=== PATIENT | male | born 1945 | race Caucasian/White ===

== ENCOUNTER 2022-11-24 23:01 | Emergency (ER) | payer MEDICARE, SELFPAY ==
[2022-11-24 23:09] VITALS: BP 148/73; PULSE 98; RESP 18; TEMP 37.3; O2SAT 98; BMI 29.2
[2022-11-24 23:24] LABS: Glucometer 144 mg/dL (74-106)
--- NOTE | 2022-11-25 00:01 | ED_ITS ---
HPI - General Adult General Chief complaint: Weakness Stated complaint: hyperglycemia Time Seen by Provider: 11/24/22 23:59 Source: patient Mode of arrival: walk-in Limitations: no limitations History of Present Illness HPI narrative: 77-year-old male with a history of diabetes presents for evaluation of 3 days of nasal congestion with runny nose, increased fatigue and nausea. The patient states that his nose is running down the back of his throat and into his stomach causing him to be nauseated. It is mostly clear but sometimes yellowish when he blows his nose. He does not have a history of seasonal ALLERGIES.He has not vomited. He denies any chest pain or shortness of breath. He does have an occasional cough but he feels that is related to this stuff running down the back of his throat. He is concerned that he may have a sinus infection. He has not had a fever. He does have fullness in his ears. He has no facial pain. He has no dizziness or syncope. He was recently visiting his son in [place] and h is symptoms started after returning from [place]. He has had a cold with vaccinations. He is mostly concerned because the nausea that he is experiencing from the drainage from his nose is keeping him from following his routine of eating and taking his diabetic medications. Earlier this evening he woke up covered with sweat and his sugar was 44. His significant other gave him jelly and on arrival his glucose was 144. Onset (ago): day(s) (3) Related Data Home Medications Medication Instructions Recorded Confirmed atorvastatin 40 mg tablet 40 mg PO DAILY 11/24/22 11/24/22 empagliflozin 10 mg tablet 10 mg PO DAILY 11/24/22 11/24/22 (Jardiance) insulin degludec 100 unit/mL (3 40 unit subcut DAILY 11/24/22 11/24/22 mL) subcutaneous pen (Tresiba FlexTouch U-100 insulin) lisinopril 10 mg tablet 10 mg PO DAILY 11/24/22 11/24/22 Allergies Allergy/AdvReac Type Severity Reaction Status Date / Time No Known Drug Allergies Allergy Verified 11/24/22 23:13 Review of Systems ROS Status of ROS 10 or more systems reviewed and unremarkable except as noted in history and below Ears, nose, mouth, and throat Reports: nasal discharge and nasal congestion Gastrointestinal Reports: nausea PFSH PFSH Social History Smoking status: Never smoker Exam Constitutional Vital Signs - 24 hr 11/24/22 23:09 11/25/22 00:58 11/25/22 03:03 Temperature 99.1 F Pulse Rate [Monitor] 98 H 96 H 93 H Respiratory Rate 18 16 22 Blood Pressure [Left Arm] 148/73 H 111/61 115/65 Pulse Oximetry 98 95 97 Oxygen Delivery Method Room Air Room Air Room Air 11/25/22 03:04 Temperature Pulse Rate [Monitor] Respiratory Rate 22 Blood Pressure [Left Arm] Pulse Oximetry 97 Oxygen Delivery Method Room Air Documenting provider has reviewed patient's vital signs: yes (Normal vital signs) Common normals: no apparent distress (Uncomfortable, nontoxic) and average body habitus General appearance: comfortable and well kempt HENMT Common normals: normocephalic, head/scalp atraumatic, TMs normal bilaterally, nasal mucous membranes and turbinates normal (clear rhinorhea, boggy nasal turbinates) and oropharynx normal Head and scalp: normal to inspection and normocephalic Face and sinus: normal facial exam, sinuses nontender and face symmetric Nose: external nose normal, nares normal and nasal mucous membranes and turbinates normal (boggy) External ear: external ears normal Tympanic membrane: TMs normal bilaterally Mouth: oral and palatal mucosa normal Eye Common normals: PERRL, EOMs intact bilaterally and conjunctivae normal Neck & C-Spine Common normals: full ROM, no lymphadenopathy, supple, no meningeal signs and no JVD General: normal visual inspection and trachea midline Respiratory Common normals: normal respiratory effort, no retractions, no use of accessory muscles and clear to auscultation bilaterally Effort & inspection: able to speak in complete sentences and symmetric chest movement Auscultation: clear to auscultation bilaterally Cardio Common normals: no JVD, regular rate (irregular rate and rhythm), regular rhythm, S1 normal heart sound, S2 normal heart sound, no gallops, no clicks, no murmurs, no rub and peripheral pulses 2+ throughout Rhythm: abnormal rhythm irregularly irregular GI Common normals: Normal to inspection, nondistended, normoactive bowel sounds present and soft to palpation Palpation: soft Extremity Common normals: normal to inspection and full ROM Neuro Common normals: oriented x3, CN's II-XII intact bilaterally, moves all extremities, no focal motor deficits and no sensory deficits noted Psych Common normals: mental status grossly normal Course Reevaluation(s) Reevaluation #1: pt feeling better after po zofran Reevaluation #2: Pt re-evaluated and is now feeling terrible with nausea, dyspepsia. He states he hasn't slept for 3 nights due to these symptoms. He did recently start taking jardiance for his diabetes. Vital Signs Vital signs: Vital Signs Temperature 99.1 F 11/24/22 23:09 Pulse Rate 98 H 11/24/22 23:09 Respiratory Rate 18 11/24/22 23:09 Blood Pressure 148/73 H 11/24/22 23:09 Pulse Oximetry 98 11/24/22 23:09 Oxygen Delivery Method Room Air 11/24/22 23:09 Temperature 99.1 F 11/24/22 23:09 Pulse Rate 93 H 11/25/22 03:03 Respiratory Rate 22 11/25/22 03:04 Blood Pressure 115/65 11/25/22 03:03 Pulse Oximetry 97 11/25/22 03:04 Oxygen Delivery Method Room Air 11/25/22 03:04 Medical Decision Making MDM Narrative Medical decision making narrative: This 77-year-old male presents for evaluation of a runny nose and severe nausea. He feels that the drainage from his nose is going into his stomach and making him nauseated. He was treated with Zofran initially with clinical improvement but then had recurrence of his symptoms. He also states that he hasn't been able to sleep for the past 3 nights due to nausea and inability to get comfortable due to the nausea. He is not vomiting. He denies any chest pain or shortness of breath. His HEENT exam is basically benign and he has a normal respiratory panel. After his initial Zofran he was reevaluated and states his symptoms had returned and he was feeling sweaty. He had had an episode of hypo-glycemia earlier in the night. The patient states that he has not been on his normal routine of eating and monitoring his glucose because of the nausea. Ultimately he revealed to me that he has recently started taking Jardiance, which was prescribed by his family physician. He started taking it about 2 weeks ago but has not taken it in the past 4 days. I suspected that some of his symptoms may be related to that however we did a cardiac workup considering he was having nausea and diaphoresis. He did explain that a year or so ago when having preop w [facility] for dental work he was told that he had an irregular heart rate. He had never been told that he had atrial fibrillation. He does take a daily baby aspirin. An EKG was performed that shows atrial fibrillation At 89 bpm with no acute changes. An IV was placed and he was given a liter of fluid and IV Zofran with clinical improvement. We had a lengthy discussion about the side effects of this new medication that he is taking and I was concerned that he may have ketoacidosis. Routine labs were ordered and show a mild elevation in his white count at 12.8 with a normal hemoglobin. There were negative for acetone. He had a normal bicarbonate. He does have an elevated creatinine at 2.12. His troponin is normal. He states that he does not think he has ever had any kidney problems in the past. His elevated creatinine is possibly related to the fact that he has not been eating or drinking for the past 3 days due to the abdominal discomfort he is experiencing. I did note that he is also on lisinopril. After the IV fluids and Zofran he was clinically improved and did not wish to discuss being admitted to the hospital. He states he will call per medical cardiology tomorrow and get a follow-up appointment. He also will follow up as soon as possible with his primary care physician. I encouraged him to withhold taking this medication until he can see his primary care physician in follow-up. The patient appears to be well otherwise and we discussed the fact that his atrial fibrillation is rate controlled and may not be new. He does not appear to be having any side effects from the atrial fibrillation. He does not have any chest pain shortness of breath dizziness or palpitations. He'll be discharged home with a prescription for the Zofran and a copy of his EKG and lab work. He was encouraged return to emergency department for ongoing or worsening symptoms or any concerns. Medical Records Medical records narrative: We do not have any prior blood work in our system Lab Data Lab results reviewed: Yes I reviewed the patient's lab results Lab results narrative: Patient has a low sodium at 129 and elevated creatinine at 2.12. Troponin is normal. CBC and differential is normal. Respiratory panel is normal. Labs: Lab Results 11/24/22 11/25/22 11/25/22 Range/Units 23:22 00:05 01:38 WBC (4.0-11.0) 10^3/uL RBC (4.70-6.10) 10^6/uL Hgb (14.0-18.0) g/dL Hct (42.0-54.0) % MCV (80.0-94.0) fL MCH (25.9-34.0) pg MCHC (29.9-35.2) g/dL RDW (11.0-15.0) % Plt Count (150-450) 10^3/uL MPV (9.5-13.5) fL Seg Neuts % (Manual) Band Neutrophils % (0-5) % Lymphocytes % (Manual) (20.5-60.0) % Atypical Lymphs % (Man) % Monocytes % (Manual) (1.7-12.0) % Eosinophils % (Manual) (0.9-7.0) % Basophils % (Manual) (0.2-2.0) % Neutrophils # (Manual) (1.4-6.5) 10^3/uL Band Neutrophils # (0.0-0.3) 10^3/uL Lymphocytes # (Manual) (1.20-3.80) 10^3/uL Monocytes # (Manual) (0.30-0.80) 10^3/uL Eosinophils # (Manual) (0.00-0.70) 10^3/uL Basophils # (Manual) (0.00-0.10) 10^3/uL Sodium (136-145) mmol/L Potassium (3.5-5.1) mmol/L Chloride (98-107) mmol/L Carbon Dioxide (21.0-32.0) mmol/L Anion Gap BUN (7.0-18.0) mg/dL Creatinine (0.70-1.30) mg/dL Est GFR ( Amer) (>=60) Est GFR (Non-Af Amer) (>=60) BUN/Creatinine Ratio Glucose (74-106) mg/dL Lactate (0.4-2.0) mmol/L Calcium (8.5-10.1) mg/dL Troponin I High Sens (4.0-76.1) pg/mL Acetone, Qual (NEGATIVE) Adenovirus (PCR) Not detected (NOT DETECTE) C. pneumoniae DNA (PCR) Not detected (NOT DETECTE) Coronavirus Type OC43 Not detected (NOT DETECTE) Coronavirus Type HKU1 Not detected (NOT DETECTE) Coronavirus Type 229E Not detected (NOT DETECTE) Coronavirus Type NL63 Not detected (NOT DETECTE) Human Metapneumovir PCR Not detected (NOT DETECTE) M. pneumoniae (PCR) Not detected (NOT DETECTE) Parainfluenza PCR Not detected (NOT DETECTE) Parainfluenza 2 (PCR) Not detected (NOT DETECTE) Parainfluenza 3 (PCR) Not detected (NOT DETECTE) Parainfluenza 4 (PCR) Not detected (NOT DETECTE) RSV (RT-PCR) Not detected (NOT DETECTE) Entero/Rhino (PCR) Not detected (NOT DETECTE) SARS-CoV-2 (PCR) Not detected (NOT DETECTE) Bordetella pertussis (PCR) Not detected (NOT DETECTE) B parapertussis DNA PCR Not detected (NOT DETECTE) Influenza Type A (PCR) Not detected (NOT DETECTE) Influenza Type B (PCR) Not detected (NOT DETECTE) POC Glucose 144 H 115 H (74-106) mg/dL 11/25/22 Range/Units 01:50 WBC 12.8 H (4.0-11.0) 10^3/uL RBC 3.95 L (4.70-6.10) 10^6/uL Hgb 11.9 L (14.0-18.0) g/dL Hct 34.3 L (42.0-54.0) % MCV 86.8 (80.0-94.0) fL MCH 30.1 (25.9-34.0) pg MCHC 34.7 (29.9-35.2) g/dL RDW 12.8 (11.0-15.0) % Plt Count 147 L (150-450) 10^3/uL MPV 12.1 (9.5-13.5) fL Seg Neuts % (Manual) 44.0 Band Neutrophils % 3.0 (0-5) % Lymphocytes % (Manual) 8.0 L (20.5-60.0) % Atypical Lymphs % (Man) 35.0 % Monocytes % (Manual) 10.0 (1.7-12.0) % Eosinophils % (Manual) 0.0 L (0.9-7.0) % Basophils % (Manual) 0.0 L (0.2-2.0) % Neutrophils # (Manual) 5.63 (1.4-6.5) 10^3/uL Band Neutrophils # 0.4 H (0.0-0.3) 10^3/uL Lymphocytes # (Manual) 1.02 L (1.20-3.80) 10^3/uL Monocytes # (Manual) 1.28 H (0.30-0.80) 10^3/uL Eosinophils # (Manual) 0.00 (0.00-0.70) 10^3/uL Basophils # (Manual) 0.00 (0.00-0.10) 10^3/uL Sodium 129 L (136-145) mmol/L Potassium 4.0 (3.5-5.1) mmol/L Chloride 98 (98-107) mmol/L Carbon Dioxide 22.1 (21.0-32.0) mmol/L Anion Gap 12.9 BUN 34.0 H (7.0-18.0) mg/dL Creatinine 2.12 H (0.70-1.30) mg/dL Est GFR ( Amer) 37 L (>=60) Est GFR (Non-Af Amer) 31 L (>=60) BUN/Creatinine Ratio 16.0 Glucose 123 H (74-106) mg/dL Lactate 1.6 (0.4-2.0) mmol/L Calcium 8.3 L (8.5-10.1) mg/dL Troponin I High Sens 34.3 (4.0-76.1) pg/mL Acetone, Qual Negative (NEGATIVE) Adenovirus (PCR) (NOT DETECTE) C. pneumoniae DNA (PCR) (NOT DETECTE) Coronavirus Type OC43 (NOT DETECTE) Coronavirus Type HKU1 (NOT DETECTE) Coronavirus Type 229E (NOT DETECTE) Coronavirus Type NL63 (NOT DETECTE) Human Metapneumovir PCR (NOT DETECTE) M. pneumoniae (PCR) (NOT DETECTE) Parainfluenza PCR (NOT DETECTE) Parainfluenza 2 (PCR) (NOT DETECTE) Parainfluenza 3 (PCR) (NOT DETECTE) Parainfluenza 4 (PCR) (NOT DETECTE) RSV (RT-PCR) (NOT DETECTE) Entero/Rhino (PCR) (NOT DETECTE) SARS-CoV-2 (PCR) (NOT DETECTE) Bordetella pertussis (PCR) (NOT DETECTE) B parapertussis DNA PCR (NOT DETECTE) Influenza Type A (PCR) (NOT DETECTE) Influenza Type B (PCR) (NOT DETECTE) POC Glucose (74-106) mg/dL ECG Data Attestation: I personally reviewed and interpreted this ECG as follows: (Atrial fibrillation 89 beats for minute, normal axis, nonspecific ST changes, no acute ST segment elevation or T-wave inversion) Discharge Plan Discharge Chief Complaint: Weakness Clinical Impression: Medication side effect, Nausea, Dehydration, Atrial fibrillation Patient Disposition: Home, Self-Care Time of Disposition Decision: 03:15 Prescriptions / Home Meds: No Action atorvastatin 40 mg tablet 40 mg PO DAILY Jardiance 10 mg tablet 10 mg PO DAILY insulin degludec [Tresiba FlexTouch U-100] 100 unit/mL (3 mL) insulin pen 40 unit SUBCUT DAILY lisinopril 10 mg tablet 10 mg PO DAILY Instructions: A-fib (Atrial Fibrillation) (ED), Dehydration (ED), Acute Nausea and Vomiting (ED) Stand Alone Forms: Portal Instructions Referrals: FAMILIA ARTIS [Primary Care Provider] - As soon as possible
[2022-11-25] MEDS: ONDANSETRON 4 MG RAPDIS TABLET SL ×2 (00:29→04:40)
[2022-11-25 00:58] VITALS: BP 111/61; PULSE 96; RESP 16; O2SAT 95
--- NOTE | 2022-11-25 01:02 | XR_ITS ---
The [address] [address] Patient Name: DON GANN MRN: [id number] date: 1945 Sex: M Assigned Patient Location: ER Current Patient Location: ER Accession/Order Number: [id number] Exam Date: 11/25/2022 01:04 Report Date: 11/25/2022 01:30 At the request of: KOJO MARKER Procedure: XR chest 2V EXAM: XR chest 2V HISTORY: cough COMPARISON: None. TECHNIQUE: 2 views of the chest were obtained. FINDINGS: The cardiac silhouette is normal in size. Aortic atherosclerotic disease is seen. Calcified granulomas are seen in the left lung. There is no significant pneumothorax or pleural effusion. Surgical clips are seen within the right aspect of the neck. No acute osseous abnormality is seen. IMPRESSION: 1. No acute cardiopulmonary abnormality. Electronically authenticated by: Sharri ARAUJO Date: 11/25/2022 01:30
[2022-11-25 01:08] LABS: Adenovirus NOT DETECTED (NOT DETECTE); Bordetella parapertussis NOT DETECTED (NOT DETECTE); Coronavirus 229E NOT DETECTED (NOT DETECTE); Coronavirus HKU1 NOT DETECTED (NOT DETECTE); Coronavirus NL63 NOT DETECTED (NOT DETECTE); Coronavirus OC43 NOT DETECTED (NOT DETECTE); Human Metapneumovirus NOT DETECTED (NOT DETECTE); Human Rhinovirus/Enterovirus NOT DETECTED (NOT DETECTE); Influenza A NOT DETECTED (NOT DETECTE); Influenza B NOT DETECTED (NOT DETECTE); Mycoplasma pneumoniae NOT DETECTED (NOT DETECTE); Parainfluenza Virus 1 NOT DETECTED (NOT DETECTE); Parainfluenza Virus 2 NOT DETECTED (NOT DETECTE); Parainfluenza Virus 3 NOT DETECTED (NOT DETECTE); Parainfluenza Virus 4 NOT DETECTED (NOT DETECTE); Respiratory Syncytial Virus NOT DETECTED (NOT DETECTE); SARS-CoV-2 NOT DETECTED (NOT DETECTE)
--- NOTE | 2022-11-25 01:35 | ECG_ITS ---
The [facility] Test Date: 2022-11-25 Pat Name: DON GANN Department: Room: - Gender: Male Human Services Care Specialist: : 1945 Requested By: [id number] Order Number: [id number] Reading MD: ELBA CALVO Measurements Intervals [place] Rate: 89 P: -[id number] [place]: -[id number] QRS: 40 QRSD: 98 T: 33 QT: 360 QTc: 406 Interpretive Statements 1210 Atrial fibrillation 9140 abnormal rhythm ECG No previous ECG available for comparison Electronically Signed On 11-25-2022 7:03:23 EDT by ELBA CALVO
[2022-11-25 01:51] LABS: Glucometer 115 mg/dL (74-106)
[2022-11-25 02:01] VITALS: PULSE 89
[2022-11-25 02:06] LABS: Hematocrit 34.3 % (42.0-54.0); Hemoglobin 11.9 g/dL (14.0-18.0); Mean Corpuscular HGB Conc 34.7 g/dL (29.9-35.2); Mean Corpuscular Hemoglobin 30.1 pg (25.9-34.0); Mean Corpuscular Volume 86.8 fL (80.0-94.0); Mean Platelet Volume 12.1 fL (9.5-13.5); Platelet Count 147 10^3/uL (150-450); Red Blood Count 3.95 10^6/uL (4.70-6.10); Red Cell Distribution Width 12.8 % (11.0-15.0); White Blood Count 12.8 10^3/uL (4.0-11.0)
[2022-11-25] MEDS: 0.9 % SODIUM CHLORIDE 1,000 ML 1000 ML IV (02:10)
[2022-11-25 02:12] LABS: Acetone NEGATIVE (NEGATIVE)
[2022-11-25] MEDS: ONDANSETRON PF 4 MG/2 ML VIAL 8 MG IV (02:14)
[2022-11-25 02:21] LABS: Anion Gap 12.9; Calcium 8.3 mg/dL (8.5-10.1); Carbon Dioxide 22.1 mmol/L (21.0-32.0); Chloride 98 mmol/L (98-107); Estimated GFR (African America 37 (>=60); Estimated GFR (Non-African Ame 31 (>=60); Glucose 123 mg/dL (74-106); Lactate/Lactic Acid 1.6 mmol/L (0.4-2.0); Sodium 129 mmol/L (136-145); Troponin I High Sensitivity 34.3 pg/mL (4.0-76.1)
[2022-11-25 02:24] LABS: Band Neutrophils Absolute 0.4 10^3/uL (0.0-0.3); Lymphocytes Absolute Manual 1.02 10^3/uL (1.20-3.80); Monocytes Absolute Manual 1.28 10^3/uL (0.30-0.80); Segmented Neut Absolute Manual 5.63 10^3/uL (1.4-6.5)
[2022-11-25 03:03] VITALS: BP 115/65; PULSE 93; RESP 22; O2SAT 97
[2022-11-25 03:04] VITALS: RESP 22; O2SAT 97
[2022-11-25 04:14] VITALS: BP 106/67; PULSE 92; RESP 16; O2SAT 97
== END 2022-11-25 04:21 | disposition home or self-care (01) ==
PROVIDERS: Emergency Provider Emergency Medicine; PCP Family Medicine
DX: R11.0 Nausea (principal); E86.0 Dehydration; I48.91 Unspecified atrial fibrillation; T50.995A Adverse effect of other drugs, medicaments and biological substances, initial encounter; E11.9 Type 2 diabetes mellitus without complications; Z79.899 Other long term (current) drug therapy; Z79.4 Long term (current) use of insulin; Z79.82 Long term (current) use of aspirin; Z20.822 Contact with and (suspected) exposure to COVID-19
CPT/HCPCS: 0202U; 36415; 71046; 80048; 82009; 83605; 84484; 85007; 85025; 85027; 93005; 96374; 99285